=== PATIENT | female | born 1985 | race Hispanic/Latino ===

== ENCOUNTER → 2016-09-15 | Outpatient (CLI) | payer BC ==
[2016-09-15 10:26] VITALS: BP 101/60
== END ==
LOC: MHUC 09:45
PROVIDERS: ATTEND Nurse Practitioner
DX: J09.X2 Influenza due to identified novel influenza A virus with other respiratory manifestations (principal)
CPT/HCPCS: 99213

== ENCOUNTER → 2016-10-12 | Outpatient (REF) | payer BC ==
[2016-10-12 17:24] LABS: ALBUMIN 4.5 g/dL (3.4-5.0); ANION GAP 14.1 MEQ/L (3-15); TOTAL PROTEIN 7.9 g/dL (6.4-8.5)
== END ==
LOC: LAB 16:42
PROVIDERS: ATTEND Family Medicine
DX: Z00.00 Encounter for general adult medical examination without abnormal findings (principal); E78.4 Other hyperlipidemia
CPT/HCPCS: 80053; 80061

== ENCOUNTER → 2016-10-12 | Outpatient (CLI) | payer BC | LOC: RAD 16:43 | PROVIDERS: ATTEND Family Medicine | DX: E83.59 Other disorders of calcium metabolism (principal) | CPT/HCPCS: 74000 ==

== ENCOUNTER → 2016-11-19 | Outpatient (CLI) | payer BC ==
[~2016-11-19] MED LIST: AMOX875T47 PO; OSLT75C PO; PNV1CAPS13 PO; PNV1TABL9 PO; PREN-51 PO
[2016-11-19 19:04] VITALS: BP 104/69
--- NOTE | 2016-11-19 19:04 | Urgent Care T Sheet Gen (E) ---
Intake General Temperature (Fahrenheit): 97.9 Pulse: 80 Blood Pressure Systolic: 104 Blood Pressure Diastolic: 69 Respirations: 18 Chief Complaint: Ear/Nose/Throat Complaint Description of Symptoms This 30 y/o female is here today because of sore throat that started last night the . She has not had cough but her glands in her neck have seemed swollen to her and she looked in her throat and thought it looked red. She rated her pain in her throat as a "9" on a pain scale. She denies fever. She did take some Tylenol for the pain and also tried some Claritin. Her ears are bothering her and she is slightly congested also which is why the allergy med was taken. Her PCP is Dr. Fuentes. Source: Patient Exam Limitations: No limitations History of Present Illness Onset & Duration: Days Timing: Still present Severity: Mild Associated Symptoms: Nasal congestion Recent Trauma: No Similar Sympotms Previously: No Allergies: Coded Allergies: No Known Drug Allergies (Unverified , 09/11/13) Home Meds Active Scripts Oseltamivir Phosphate (Tamiflu)75 Mg Cap75 Mg PO BID Infection #10 CAP Ref 0 Prov:JOHNNA SANDY APRN () 09/15/16 Amoxicillin (Amoxil)875 Mg [id number] Mg PO BID #14 TAB Prov:YENNIFER DELVALLE 10/20/15 Reported Medications Pnv Cmb#21/Iron/Folic Acid ( Complete Caplet)1 Each Tablet1 Each PO DAILY 09/12/13 Respiratory Constitutional Symptoms: No syptoms reported EENTM: See HPI Ear pain (bilaterally.) Nose Congestion Throat pain Respiratory: No symptoms reported Cardiovascular: No symptoms reported Gastrointestinal/Abdominal: No symptoms reported Genitourinary: No symptoms reported Estimated Date of Delivery: 09/04/2013 Musculoskeletal: No symptoms reported Skin: No symptoms reported Neurological: No symptoms reported Hematologic/Lymphatic: No symptoms reported Immunologic/Allergies: No symptoms reported All Other Systems Reviewed Remaining Systems: All other systems reviewed with negative findings Past Hakqoyo-Ahnrky-Jjqeeo Hx Patient's Social History Alcohol Use: Denies Use Surgeries/Hospitalizations Hospitalization/Surgery Hx: healthy Reproductive System : 2 Abortions: 0 Living Children: 1 HIV/AIDS: Negative Physical Exam Physical Exam General Appearance: WD/WN No apparent distress Eyes, Ears, Nose, Throat Ex: PERRL/EOMI Normal ENT inspection TMs normalNo Pharynx normal, Pharyngeal erythema (mild with 1+ tonsillar hypertrophy and no exudate seen.) Neck Exam: Non tender Full range of motion Supple Normal inspection Normal thyroid Lymphadenopathy (Mild shoddy adenopathy noted to the superior aspect of the anterior cervical chain. ) Respiratory Exam: Chest non-tender Lungs clear Normal breath sounds No respiratory distress No accessory muscles used Cardiovascular Exam: Regular rate, rhythm No edema No gallop No JVD No murmur Skin Exam: Normal color Warm/dry/intact No rashes No embolic lesions Neurologic/Psychiatric Exam: Oriented times 4 CN's II-X nml No motor deficits No sensory deficits Mood/affect nml Progress/Orders Lab Results Labs Results: Rapid Strep (negative.) Departure Urgent Care Impression Chief Complaint: UC Ear/Nose/Throat Complaint Impression: Primary Impression: Pharyngitis Departure Disposition: 01 HOME OR SELF-CARE Condition: Stable Referrals: ANT FUENTES MD (PCP) Additional Instructions: The patient was made aware of her result. I have asked her to continue on with the Tylenol for pain relief. She might also give a trial to the fruit breezer lozenges. She should hydrate well with water and try to get some extra rest. If no improvement in symptoms in 72 hours to follow up with her PCP. End of report . ANDREW ELIZONDO Nov 19, 2016 19:04
== END ==
LOC: MHUC 18:43
PROVIDERS: ATTEND Physician Assistant Medical
DX: J02.9 Acute pharyngitis, unspecified (principal)
CPT/HCPCS: 87880; 99213